=== PATIENT | female | born 1970 | race Caucasian/White ===

== ENCOUNTER 2021-04-05 13:41 | Emergency (ER) | payer BC, MEDICAID, SELFPAY ==
[2021-04-05 14:02] VITALS: BP 146/103; PULSE 120; RESP 16; TEMP 37.4; O2SAT 97
[2021-04-05 14:15] VITALS: BP 141/92; PULSE 112; RESP 18; TEMP 37.7; O2SAT 97
[2021-04-05] MEDS: ondansetron 2 mg/ML SDV 2 mL 4 MG IM (14:30)
--- NOTE | 2021-04-05 15:09 | ED_ITS ---
Documented by User: Genna Morales PA-C 04/05/21 16:52 HPI - Dental/Oral General: Chief complaint: Dental/Oral Stated complaint: FEVER, N/V Time Seen by Provider: 04/05/21 14:16 Source: patient Mode of arrival: ambulatory Limitations: no limitations History of Present Illness: HPI Narrative: 50-year-old female presents to the ER today for dental pain, facial swelling, chills, fever. Patient reports she had a tooth removed yesterday. Patient reports this tooth was abscessed and difficult to remove. Patient was prescribed clindamycin and started it yesterday. Patient reports she did not have good anesthesia during the procedure and it was very painful. She reports she is taking the hydrocodone prescribed by the dentist which does not touch the pain at this time. Patient was unable to call the dentist today because he is out on Fridays. Patient reports constant pus drainage from the dental extraction site. She reports some increased swelling today in the left maxilla. Patient reports chills and being feverish. Patient reports nausea and vomiting due to pain. Patient denies headache, chest pain, shortness of breath, diarrhea, constipation. MD Complaint: tooth pain Onset (ago): day(s) Duration: constant Severity: severe Severity scale (1-10): 8 Relieving factors: nothing Review of Systems General: Reports: 10 or more systems reviewed and unremarkable except in HPI and below Physical Exam Const: COMMON NORMALS: average body habitus, patient oriented x3 and no limitations GENERAL APPEARANCE: cooperative and ill appearing (vomiting); not comfortable HENMT: COMMON NORMALS: normocephalic, external ears normal, Normal external nose present and oropharynx normal HEAD & SCALP: normocephalic NOSE: Normal external nose present EXTERNAL EAR: Yes external ears normal TEETH & GINGIVA: Yes abnormal tooth and associated gingiva (Noted extraction site left upper maxilla with drainage.) THROAT: posterior oropharynx normal Lymph: LYMPHATIC: no lymphadenopathy noted Resp: COMMON NORMALS: normal respiratory effort and No retractions EFFORT & INSPECTION: Yes able to speak in complete sentences Cardio: COMMON NORMALS: regular rate and regular rhythm RATE: regular rate RHYTHM: regular rhythm Extremity: COMMON NORMALS: normal to inspection and full ROM Neuro: COMMON NORMALS: patient oriented x3, moves all extremities, no sensory deficits noted and gait normal Psych: COMMON NORMALS: mental status grossly normal, Normal thought process present, cooperative and normal affect THOUGHT PROCESS: Normal thought process present Skin: COMMON NORMALS: no rashes or lesions noted and no wounds GENERAL SKIN EXAM: no rashes or lesions noted Course ED course: Patient presents to the ER today with dental pain and pus from a dental extraction done yesterday. Patient is on antibiotics at this time. Patient reports having difficulty getting the tooth out. She tried to call her dentist today but they were out of town. Patient is concerned that there is some swelling and increased pain. Patient has nausea and vomiting due to the pain. We will do labs to rule out infection in the blood. Patient is on an appropriate antibiotic and likely needs to give it some time. On exam, the pus is to be expected from the site given there was a known abscess cavity up into the sinuses. Vital Signs: Vital signs: Vital Signs Temperature 99.9 F H 04/05/21 14:15 Pulse Rate 112 H 04/05/21 14:15 Respiratory Rate 18 04/05/21 14:15 Blood Pressure 141/92 04/05/21 14:15 Pulse Oximetry 97 04/05/21 14:15 MDM - Dental/Oral MDM Narrative: Medical decision making narrative: 50-year-old female presents to the ER today with dental infection and pain in the left maxillary region. Patient had a tooth extracted yesterday due to a deep abscess that went into the sinuses. Patient was started on clindamycin and has been taking it for the last 24 hours. Patient reports pain has not improved any. She reports drainage from the extraction site. Patient reports low-grade fever and chills, nausea and vomiting. Patient reports she is taking Tylenol and hydrocodone as prescribed by her dentist. On exam, there does appear to be an extraction with some drainage noted. CBC done in ER and is normal. Patient is on appropriate medication at this time. I discussed with patient that usually it takes up to 48 hours for antibiotic to start showing improvement. She should continue the antibiotic and take pain medication as prescribed by the dentist. Apply ice to reduce swelling. Eat soft foods. Follow-up with a dentist in 3 to 5 days. Return to the ER with new or worsening symptoms. Patient verbalized understanding and is in agreement with the treatment plan. Lab Data: Attestation: I reviewed the patient's lab results. Labs: Lab Results 04/05/21 14:46 WBC 6.2 10^3/uL 10^3/ uL (4.0-10.0) RBC 5.14 10^6/uL 10^6 /uL (4.1-5.3) Hgb 14.4 g/dL g/dL (11.5-15.3) Hct 44.1 % % (37.0-47.0) MCV 85.8 fl fl (81-99) MCH 28.0 pg pg (28.0-34.0) MCHC 32.7 g/dL g/dL (30.0-36.0) RDW 13.4 % % (12.1-15.1) Plt Count 233 10^3/cmm 10^3 /cmm (130-400) MPV 10.2 fL fL (7.4-10.4) Neut % (Auto) 72.5 % % Lymph % (Auto) 16.3 % % [place] % (Auto) 10.4 % % Eos % (Auto) 0.0 % % Baso % (Auto) 0.5 % % Neut # (Auto) 4.52 10^3/uL 10^3 /uL (1.8-7.7) Lymph # (Auto) 1.0 10^3/uL 10^3/ uL (0.8-4.8) [place] # (Auto) 0.7 10^3/uL 10^3/ uL (0.2-0.9) Eos # (Auto) 0.0 10^3/uL 10^3/ uL (0.0-0.8) Baso # (Auto) 0.0 10^3/uL 10^3/ uL (0.0-0.1) Nucleated RBC % (a uto) 0 % % Nucleated RBCs # 0.0 /100WBC /100W Critical Care Time Critical Care Time: Critical Care Time: No Discharge Plan Discharge Patient Disposition: Home Clinical Impression: Dental infection Condition: Stable Discharge Orders: Discharge ED (Routine); Ordered 04/05/21 Ordered By: Genna Morales Discharge Diet: Soft Mechanical Discharge Activity: Resume usual activity Patient Instructions: Opioid Safety Activity Restrictions/Additional Instructions: Continue taking clindamycin as prescribed. Take Tylenol as discussed, 1000 mg three times daily. Apply ice to reduce swelling in face. Soft foods recommended. Follow-up with a dentist on Thursday if things have not improved. Return to the ER with new or worsening symptoms. Coding Level of Care Code ED Window Glazier Helper for Chg Fwd Exam Comprehensive Documented by User: Raji Isidro DO 04/09/21 06:56 HPI - Dental/Oral General: Chief complaint: Dental/Oral Stated complaint: FEVER, N/V Time Seen by Provider: 04/05/21 14:16 Course Vital Signs: Vital signs: Vital Signs Temperature 99.9 F H 04/05/21 14:15 Pulse Rate 112 H 04/05/21 14:15 Respiratory Rate 18 04/05/21 14:15 Blood Pressure 141/92 04/05/21 14:15 Pulse Oximetry 97 04/05/21 14:15 MDM - Dental/Oral MDM Narrative: Medical decision making narrative: Chart reviewed and patient discussed with midlevel. Agree with assessment and plan. Lab Data: Labs: Lab Results 04/05/21 14:46 WBC 6.2 10^3/uL 10^3/ uL (4.0-10.0) RBC 5.14 10^6/uL 10^6 /uL (4.1-5.3) Hgb 14.4 g/dL g/dL (11.5-15.3) Hct 44.1 % % (37.0-47.0) MCV 85.8 fl fl (81-99) MCH 28.0 pg pg (28.0-34.0) MCHC 32.7 g/dL g/dL (30.0-36.0) RDW 13.4 % % (12.1-15.1) Plt Count 233 10^3/cmm 10^3 /cmm (130-400) MPV 10.2 fL fL (7.4-10.4) Neut % (Auto) 72.5 % % Lymph % (Auto) 16.3 % % [place] % (Auto) 10.4 % % Eos % (Auto) 0.0 % % Baso % (Auto) 0.5 % % Neut # (Auto) 4.52 10^3/uL 10^3 /uL (1.8-7.7) Lymph # (Auto) 1.0 10^3/uL 10^3/ uL (0.8-4.8) [place] # (Auto) 0.7 10^3/uL 10^3/ uL (0.2-0.9) Eos # (Auto) 0.0 10^3/uL 10^3/ uL (0.0-0.8) Baso # (Auto) 0.0 10^3/uL 10^3/ uL (0.0-0.1) Nucleated RBC % (a uto) 0 % % Nucleated RBCs # 0.0 /100WBC /100W BC Discharge Plan Discharge Patient Disposition: Home Clinical Impression: Dental infection Condition: Stable Discharge Orders: Discharge ED (Routine); Ordered 04/05/21 Ordered By: Genna Morales Discharge Diet: Soft Mechanical Discharge Activity: Resume usual activity Patient Instructions: Opioid Safety Activity Restrictions/Additional Instructions: Continue taking clindamycin as prescribed. Take Tylenol as discussed, 1000 mg three times daily. Apply ice to reduce swelling in face. Soft foods recommended. Follow-up with a dentist on Thursday if things have not improved. Return to the ER with new or worsening symptoms. Coding Level of Care Code ED Window Glazier Helper for Bryson Fwlary Exam Comprehensive
[2021-04-05 16:05] LABS: Basophils % 0.5 %; Hematocrit 44.1 % (37.0-47.0); Hemoglobin 14.4 g/dL (11.5-15.3); Lymphocytes % 16.3 %; Mean Corpuscular HGB Conc 32.7 g/dL (30.0-36.0); Mean Corpuscular Volume 85.8 fl (81-99); Mean Platelet Volume 10.2 fL (7.4-10.4); Monocytes # 0.7 10^3/uL (0.2-0.9); Monocytes % 10.4 %; Neutrophils # 4.52 10^3/uL (1.8-7.7); Neutrophils % 72.5 %; Nucleated Red Blood Cells % 0 %; Platelet Count 233 10^3/cmm (130-400); Red Blood Count 5.14 10^6/uL (4.1-5.3); Red Cell Distribution Width 13.4 % (12.1-15.1); White Blood Count 6.2 10^3/uL (4.0-10.0)
== END 2021-04-05 16:57 | disposition home or self-care (01) ==
PROVIDERS: Emergency Provider Physician Assistant
DX: K04.7 Periapical abscess without sinus (principal)
CPT/HCPCS: 85025; 96372; 99283; J2405

== ENCOUNTER 2021-09-14 06:15 | Emergency (ER) | payer BC, MEDICAID, SELFPAY ==
[2021-09-14] VITALS (7 sets, daily range): BP systolic 108–163; BP diastolic 74–106; PULSE 61–70; RESP 12–20; TEMP 36.7; O2SAT 97–100; BMI 39.4
--- NOTE | 2021-09-14 06:32 | W.ED.ABDPA2 ---
HPI - Abdominal Pain General: Chief Complaint: Abdominal Pain Stated Complaint: abd pain Time Seen by Provider: 09/14/21 06:16 History of Present Illness: Ms. Clements is a 51-year-old lady who presents to the emergency room due to abdominal pain. Onset of symptoms was subacute approximately 8 PM. She describes lower abdominal pain with pelvic pain that is moderate to severe in intensity. Since onset course occasionally worsens however has not gone away. No associated vomiting or diarrhea. Patient has been having normal bowel movements. no blood istool. No urinary symptoms. Denies similar frequent episodes in the past. Symptoms are worse with palpation and movement. Course has persisted. No other specific changes in health, exacerbating, or alleviating factors identified. Onset (ago): hour(s) Pain Consistency: constant Location: RLQ, LLQ and Suprapubic Severity: moderate Quality: cramping and stabbing Exacerbating factors: movement Relieving factors: nothing Associated Symptoms: Reports nausea Review of Systems General: Reports: 10 or more systems reviewed and unremarkable except in HPI and below GI: Reports: nausea PFSH ED PFSH: Medical History (Updated 09/26/21 @ 01:06 by Brandon Hurt MD) No significant past medical history Surgical History (Updated 09/26/21 @ 01:06 by Brandon Hurt MD) H/O: hysterectomy Physical Exam Const: COMMON NORMALS: alert GENERAL APPEARANCE: cooperative, well developed and in distress (uncomfortable appearing due to pain) HENMT: COMMON NORMALS: normocephalic and atraumatic HEAD & SCALP: normocephalic and atraumatic Eye: COMMON NORMALS: conjunctivae normal CONJUNCTIVA: Yes conjunctivae normal SCLERA: sclerae normal Neck/C-Spine: COMMON NORMALS: supple GENERAL: Yes trachea midline Resp: COMMON NORMALS: normal respiratory effort and clear to auscultation bilaterally EFFORT & INSPECTION: Yes able to speak in complete sentences AUSCULTATION: clear to auscultation bilaterally Cardio: COMMON NORMALS: regular rate and regular rhythm RATE: regular rate RHYTHM: regular rhythm GI: COMMON NORMALS: Soft to palpation PALPATION: Yes Soft to palpation, Yes Tenderness to palpation present (GI), No Guarding due to palpation present (GI) and No Rigid due to palpation PERCUSSION: normal to percussion Extremity: GENERAL: Yes normal exam except as noted and No edema Neuro: COMMON NORMALS: moves all extremities SENSORIUM/ORIENTATION: Yes alert and No Orientation impaired Psych: COMMON NORMALS: mental status grossly normal and Normal thought process present THOUGHT PROCESS: Normal thought process present Course ED course: - Patient was seen and evaluated by me at bedside - Patient placed on cardiac monitors, IV access obtained - Initial evaluation notable for exam as above - Labs personally interpreted by me - Analgesia given - Labs notable for no leukocytosis, normal hemoglobin. Metabolic end with perhaps minimal evidence of dehydration. No evidence of urinary tract infection. - Imaging notable for mild/early sigmoid diverticulitis - Upon serial reexamination after treatment the patient was improved. She tolerated p.o. intake and was comfortable with plan for outpatient antibiotic therapy. First dose of antibiotics ordered here. - Based on patient history, evaluation, and testing as interpreted the most likely cause of the patient's condition is diverticulitis - The results of ED evaluation were discussed with the patient including prescriptions and/or symptomatic cares (if applicable) including appropriate and responsible use, followup plan, and return precautions. The patient verbalized understanding and felt safe for discharge. - Patient discharged in satisfactory condition. Note: Click bubbles or prepopulated li in note writing are used for assistance with data collection and billing and are inherently more limited than narrative and other text portions of this note. Please use narrative for additional clinical history and defer to narrative/free test for any case of contradictory information. If information appears in only free text or click bubble it should be considered present or absent as reported. Please contact note underwriter solicitation director for clarifications of clinical information or contradictory information. MDM is a brief summary, contradictory or erroneous seeming information should be clarified and full note should be reviewed. Vital Signs: Vital signs: Vital Signs Temperature 98.0 F 09/14/21 06:42 Pulse Rate 65 09/14/21 12:17 Respiratory Rate 16 09/14/21 12:17 Blood Pressure 119/84 09/14/21 12:17 Pulse Oximetry 97 09/14/21 12:17 MDM - Abdominal Pain Medical Decision Making 51-year-old lady presenting with abdominal pain. Patient found have diverticulitis. Improved symptoms with treatment and able to tolerate p.o. intake. Satisfactory for outpatient management. Medical Records I reviewed the patient's medical records. Lab Data I reviewed the patient's lab results. : 09/14/21 08:15 09/14/21 08:15 Labs/Radiology: Radiology Impressions Abdomen/Pelvis CT 09/14/21 07:07 IMPRESSION: Imaging findings of mild/early sigmoid diverticulitis. Laboratory Results WBC 7.0 10^3/uL (4.0-10.0) 09/14/21 08:15 RBC 5.31 10^6/uL (4.1-5.3) H 09/14/21 08:15 Hgb 14.9 g/dL (11.5-15.3) 09/14/21 08:15 Hct 44.0 % (37.0-47.0) 09/14/21 08:15 MCV 82.9 fl (81-99) 09/14/21 08:15 MCH 28.1 pg (28.0-34.0) 09/14/21 08:15 MCHC 33.9 g/dL (30.0-36.0) 09/14/21 08:15 RDW 13.4 % (12.1-15.1) 09/14/21 08:15 Plt Count 243 10^3/cmm (130-400) 09/14/21 08:15 MPV 11.2 fL (7.4-10.4) H 09/14/21 08:15 Neut % (Auto) 54.9 % 09/14/21 08:15 Lymph % (Auto) 36.3 % 09/14/21 08:15 [place] % (Auto) 7.5 % 09/14/21 08:15 Eos % (Auto) 0.6 % 09/14/21 08:15 Baso % (Auto) 0.7 % 09/14/21 08:15 Neut # (Auto) 3.83 10^3/uL (1.8-7.7) 09/14/21 08:15 Lymph # (Auto) 2.5 10^3/uL (0.8-4.8) 09/14/21 08:15 [place] # (Auto) 0.5 10^3/uL (0.2-0.9) 09/14/21 08:15 Eos # (Auto) 0.0 10^3/uL (0.0-0.8) 09/14/21 08:15 Baso # (Auto) 0.1 10^3/uL (0.0-0.1) 09/14/21 08:15 Nucleated RBC % (auto) 0 % 09/14/21 08:15 Nucleated RBCs # 0.0 /100WBC 09/14/21 08:15 Sodium 138 mmol/L (136-145) 09/14/21 08:15 Potassium 4.4 mmol/L (3.5-5.1) 09/14/21 08:15 Chloride 106 mmol/L (98-107) 09/14/21 08:15 Carbon Dioxide 20 mmol/L (22-29) L 09/14/21 08:15 Anion Gap 16.4 (5-19) 09/14/21 08:15 BUN 16 mg/dL (6-20) 09/14/21 08:15 Creatinine 0.8 mg/dL (0.5-0.9) 09/14/21 08:15 GFR Calculation 75.9 mL/min (90-130) L 09/14/21 08:15 Glucose 92 mg/dL (65-115) 09/14/21 08:15 Calculated Osmolality 287 mOsm/kg (285-295) 09/14/21 08:15 Lactate 1.4 mmol/L (0.5-2.2) 09/14/21 08:22 Calcium 9.0 mg/dL (8.5-10.5) 09/14/21 08:15 Total Bilirubin 0.6 mg/dL (0.15-1.2) 09/14/21 08:15 AST 18 U/L (0-32) 09/14/21 08:15 ALT 22 U/L (0-33) 09/14/21 08:15 Alkaline Phosphatase 109 IU/L (35-105) H 09/14/21 08:15 Total Protein 7.3 g/dL (6.6-8.7) 09/14/21 08:15 Albumin 4.1 g/dL (3.5-5.2) 09/14/21 08:15 Globulin 3.2 g/dL (1.3-4.6) 09/14/21 08:15 Lipase 19 U/L (13-60) 09/14/21 08:15 Urine Color Yellow (Yellow) 09/14/21 08:22 Urine Appearance Clear (CLEAR) 09/14/21 08:22 Urine pH 7 (5-7) 09/14/21 08:22 Ur Specific [place] 1.010 (1.005-1.030) 09/14/21 08:22 Urine Protein Neg (Negative) 09/14/21 08:22 Urine Glucose (UA) Norm (Normal) 09/14/21 08:22 Urine Ketones Negative (Negative) 09/14/21 08:22 Urine Blood Neg (Negative) 09/14/21 08:22 Urine Nitrate Negative (Negative) 09/14/21 08:22 Urine Bilirubin Neg (Negative) 09/14/21 08:22 Urine Urobilinogen Norm mg/dL (Negative) 09/14/21 08:22 Ur Leukocyte Esterase Negative (Negative) 09/14/21 08:22 Discharge Plan Discharge Patient Disposition: Home Clinical Impression: Diverticulitis Condition: Stable Prescriptions: New oxycodone 5 mg capsule 5 mg PO Q4H PRN (Reason: pain) Qty: 10 0RF Cipro 500 mg tablet 500 mg PO BID Qty: 10 0RF metronidazole 500 mg tablet 500 mg PO TID Qty: 15 0RF Discharge Orders: Discharge ED (Routine); Ordered 09/14/21 Ordered By: Brandon Hurt Discharge Diet: Clear Liquid Discharge Activity: Increase activity as tolerated Patient Instructions: Diverticulitis (ED), Diverticulitis Diet (ED), Opioid Safety Activity Restrictions/Additional Instructions: Thank you for visiting the emergency department. You were seen and evaluated for abdominal pain. You are found to have mild diverticulitis. This likely explains your symptoms. Given other findings and improvement of your symptoms with treatment I believe that trial of outpatient treatment is appropriate. You will be given a prescription for antinausea medication, pain medication, and antibiotics. You may also use [id number] medications however please do not exceed the daily recommended dosage and please keep in mind that many namebrand medications contain the same active ingredients. Please return to the emergency department for uncontrolled symptoms, inability to tolerate antibiotics, failure to improve in the next few days, or anything else that you are concerned about and feel needs emergency department evaluation. Coding Level of Care Code ED Transportation Mechanic for Bryson Ferreira
--- NOTE | 2021-09-14 07:07 | CTR_ITS ---
PROCEDURE INFORMATION: Exam: CT Abdomen And Pelvis Without Contrast Exam date and time: 09/14/2021 8:52 AM Age: 51 years old Clinical indication: Abdominal pain; Localized; Lower; Prior surgery; Surgery type: Gb; Additional info: Lower abd pain, severe TECHNIQUE: Imaging protocol: Computed tomography of the abdomen and pelvis without contrast. Radiation optimization: All CT scans at this facility use at least one of these dose optimization techniques: automated exposure control; mA and/or kV adjustment per patient size (includes targeted exams where dose is matched to clinical indication); or iterative reconstruction. COMPARISON: CT abdomen pelvis w con* [id number] 08/25/2018 12:04 AM RADIATION DOSE METRICS: Total DLP (mGy-cm): 1686.88 FINDINGS: Liver: The liver is diffusely decreased in density, compatible with hepatic steatosis. No discrete mass lesion identified. Gallbladder and bile ducts: The gallbladder has been surgically removed. Pancreas: Normal. No ductal dilation. Spleen: There is tiny calcific densities scattered throughout the spleen, likely sequela of previous granulomatous disease. The spleen is otherwise unremarkable. Adrenal glands: Normal. No mass. Kidneys and ureters: There is a 0.3 cm nonobstructing stone in the right lower kidney. The left kidney is unremarkable. Stomach and bowel: There is multiple diverticuli in the sigmoid colon, in association with minimal focal wall thickening and subtle stranding of the adjacent fat, consistent with acute diverticulitis. No evidence of free air or fluid collection to suggest perforation. Appendix: No evidence of appendicitis. Intraperitoneal space: See Stomach and bowel finding. Vasculature: Unremarkable. No abdominal aortic aneurysm. Lymph nodes: Unremarkable. No enlarged lymph nodes. Urinary bladder: Unremarkable as visualized. Reproductive: The uterus is surgically absent. Bones/joints: Degenerative changes of the spine seen. Soft tissues: Unremarkable. CT/CT kidney stone [id number] IMPRESSION: Imaging findings of mild/early sigmoid diverticulitis.
[2021-09-14 08:28] LABS: Basophils # 0.1 10^3/uL (0.0-0.1); Basophils % 0.7 %; Eosinophils % 0.6 %; Hemoglobin 14.9 g/dL (11.5-15.3); Lymphocytes # 2.5 10^3/uL (0.8-4.8); Lymphocytes % 36.3 %; Mean Corpuscular HGB Conc 33.9 g/dL (30.0-36.0); Mean Corpuscular Hemoglobin 28.1 pg (28.0-34.0); Mean Corpuscular Volume 82.9 fl (81-99); Mean Platelet Volume 11.2 fL (7.4-10.4); Monocytes # 0.5 10^3/uL (0.2-0.9); Monocytes % 7.5 %; Neutrophils # 3.83 10^3/uL (1.8-7.7); Neutrophils % 54.9 %; Nucleated Red Blood Cells % 0 %; Platelet Count 243 10^3/cmm (130-400); Red Blood Count 5.31 10^6/uL (4.1-5.3); Red Cell Distribution Width 13.4 % (12.1-15.1)
[2021-09-14] MEDS: fentaNYL 50 mcg/mL INJ 2mL IVP (08:34)
[2021-09-14 08:49] LABS: Alanine Aminotransferase 22 U/L (0-33); Albumin Level 4.1 g/dL (3.5-5.2); Alkaline Phosphatase 109 IU/L (35-105); Anion Gap 16.4 (5-19); Aspartate Amino Transferase 18 U/L (0-32); Blood Urea Nitrogen 16 mg/dL (6-20); Carbon Dioxide 20 mmol/L (22-29); Chloride 106 mmol/L (98-107); Globulin 3.2 g/dL (1.3-4.6); Glomerular Filtration Rate 75.9 mL/min (90-130); Glucose 92 mg/dL (65-115); Lipase 19 U/L (13-60); Osmolality Calculated 287 mOsm/kg (285-295); Potassium 4.4 mmol/L (3.5-5.1); Sodium 138 mmol/L (136-145); Total Bilirubin 0.6 mg/dL (0.15-1.2); Total Protein 7.3 g/dL (6.6-8.7)
[2021-09-14 08:53] LABS: Add Urine Microscopic? NO; Charge for UA Resulting for Rev
[2021-09-14 08:55] LABS: Bilirubin Urine Neg (Negative); Blood Urine Neg (Negative); Glucose Urine UA Norm (Normal); Ketones Urine Negative (Negative); Leukocyte Esterase Urine Negative (Negative); Nitrate Urine Negative (Negative); Protein Urine Neg (Negative); Urine Appearance Clear (CLEAR); Urine Color Yellow (Yellow); Urobilinogen Urine Norm (Negative); pH Urine 7 (5-7)
[2021-09-14 09:00] LABS: Lactate (Lactic Acid level) 1.4 mmol/L (0.5-2.2)
[2021-09-14] MEDS: dicyclomine 10 mg Capsule PO (10:43)
--- NOTE | 2021-09-14 10:43 | PC.NURSE ---
Patient states she would like to hold off on the fentanyl at this time. Patient did take the Bentyl.
[2021-09-14] MEDS: ciprofloxacin 500 mg Tablet PO (11:52)
[2021-09-14] MEDS: metroNIDAZOLE 500 MG Tablet PO (11:52)
== END 2021-09-14 12:18 | disposition home or self-care (01) ==
PROVIDERS: Emergency Provider Emergency Medicine
DX: K57.32 Diverticulitis of large intestine without perforation or abscess without bleeding (principal); Z90.710 Acquired absence of both cervix and uterus
CPT/HCPCS: 74176; 80053; 81003; 83605; 83690; 85025; 96374; 99284; J3010

== ENCOUNTER 2022-07-17 12:33 | Outpatient (CLI) | payer BC, MEDICAID, SELFPAY ==
--- NOTE | 2022-07-17 12:42 | CT_ITS ---
WS: [id number] CT ABDOMEN PELVIS TECHNIQUE: Contrast-enhanced CT of the abdomen and pelvis with coronal and sagittal reformatted image s. CLINICAL INFORMATION: ABDOMINAL PAIN COMPARISON: CT September 14, 2021 DLP: 759.[address] scans at [facility] use at least one of these dose optimization techniques: automated e xposure control; mA and/or kV adjustment per patient size (includes targeted exams where dose is matc hed to clinical indication); or iterative reconstruction. FINDINGS: Prior cholecystectomy. Prior hysterectomy. Sigmoid diverticulosis. No evidence of acute diverticuliti s. Normal appendix in the RIGHT lower quadrant. Diffuse fatty infiltration liver. Normal portal vein and splenic vein. Splenic granulomas. Lung bases are well aerated. Adrenal glands are normal. Normal renal parenchymal enhancement. No hydronephrosis . Celiac and SMA are patent. Normal caliber abdominal aorta. Disc space narrowing worse L5-S1. Disc bulging L3-L4 with mild central canal stenosis and impingement on the LEFT greater than RIGHT subarticular recess. Moderate facet arthropathy ligamentum flavum hyp ertrophy. CT/CT abdomen pelvis w con* [id number] IMPRESSION: 1. Diffuse fatty infiltration liver. 2. Diverticulosis. No evidence of acute diverticulitis. 3. Cholecystectomy and hysterectomy. 4. Mild central canal stenosis L3-L4 with impingement on the LEFT subarticular recess and traversing LEFT L4 nerve root. 5. No other acute findings.
[2022-07-17] MEDS: iohexol 350 mg/mL 500 mL Btl (per mL) IV (12:56)
[2022-07-17] MEDS: iohexol 350 mg/mL 500 mL Btl (per mL) PO (12:57)
== END 2022-07-17 12:34 | disposition home or self-care (01) ==
LOC: RAD 12:36
PROVIDERS: PCP Family Medicine; Visit Provider Family Medicine
DX: R10.9 Unspecified abdominal pain (principal); K76.0 Fatty (change of) liver, not elsewhere classified; K57.30 Diverticulosis of large intestine without perforation or abscess without bleeding; Z90.49 Acquired absence of other specified parts of digestive tract; Z90.710 Acquired absence of both cervix and uterus; M48.061 Spinal stenosis, lumbar region without neurogenic claudication
CPT/HCPCS: 74177; Q9967

== ENCOUNTER 2022-08-27 10:30 | Outpatient (CLI) | payer BC, MEDICAID, SELFPAY ==
--- NOTE | 2022-08-27 10:35 | MR_ITS ---
WS: [id number] MRI LEFT HIP without CONTRAST. COMPARISON: Radiograph 07/23/2022 Multiplanar, multisequence imaging is performed without contrast. No fracture or marrow edema involving the pelvis. SI joints are symmetric. There is very mild narrowi ng of the hip joints. Osteophytic ridging around the acetabulum. No joint effusion. There is a very s mall amount of fluid adjacent to the greater trochanters. No osteochondral lesions. No osteonecrosis involving either femoral head. No muscle atrophy or edema. No labral tear. No ascites. Visualized bladder is negative. MR/MR hip LT wo con* [id number] IMPRESSION: 1. Mild bilateral narrowing of the hip joints with osteophytic ridging around the acetabulum. 2. No marrow edema or fracture. 3. No osteonecrosis. 4. Mild bilateral trochanteric bursitis.
== END 2022-08-27 10:31 | disposition home or self-care (01) ==
LOC: RAD 10:31
PROVIDERS: PCP Family Medicine; Visit Provider Family Medicine
DX: M25.552 Pain in left hip (principal); M71.9 Bursopathy, unspecified
CPT/HCPCS: 73721

== ENCOUNTER 2022-09-19 04:30 | Emergency (ER) | payer BC, MEDICAID, SELFPAY ==
[2022-09-19 04:32] VITALS: BP 148/101; PULSE 89; RESP 22; TEMP 36.6; O2SAT 100; BMI 38.7
--- NOTE | 2022-09-19 04:34 | CTR_ITS ---
PROCEDURE INFORMATION: Exam: CTA Chest With Contrast Exam date and time: 09/19/2022 5:04 AM Age: 52 years old Clinical indication: Chest wall pain; Prior surgery; Surgery date: Post-operative (0-2 days); Surgery type: Nerve root injection upper back per PT; Additional info: Back pain TECHNIQUE: Imaging protocol: Computed tomographic angiography of the chest with contrast. Exam focused on the arteries. 3D rendering (Not supervised by radiologist): MIP and/or 3D reconstructed images were created by the technologist. Radiation optimization: All CT scans at this facility use at least one of these dose optimization techniques: automated exposure control; mA and/or kV adjustment per patient size (includes targeted exams where dose is matched to clinical indication); or iterative reconstruction. Contrast material: OMNI 350; Contrast volume: 100 ml; Contrast route: INTRAVENOUS (IV); REPORTING DATA: Count of CT and Cardiac NM exams in prior 12 months: This patient has received [address] and 0 known cardiac nuclear medicine studies in the 12 months prior to the current study. COMPARISON: CR (CHEST, ) 09/19/2022 4:44 AM RADIATION DOSE METRICS: Total DLP (mGy-cm): 483.63 FINDINGS: Pulmonary arteries: No CT evidence for segmental pulmonary emboli. The main pulmonary arteries and outflow trunk are unremarkable. Aorta: No thoracic aortic aneurysm. No thoracic aortic dissection. Trachea: The central airway is normal. Lungs: Normal lung volumes. Mild dependent atelectasis. No regions of consolidation. No interlobular septal thickening or honeycombing seen to suggest interstitial lung disease on CT. Pleural spaces: No pneumothorax. No pleural effusion. Heart: The heart size is within normal limits. The RV/LV ratio is normal at 0.8 (no CT evidence of RV strain). There is no pericardial effusion. No coronary arterial atherosclerotic vascular calcifications. Lymph nodes: Nonspecific enlarged prevascular 1 x 1.2 cm lymph node is seen. Enlarged right paratracheal 1 x 1 cm lymph node is seen. Right hilar calcified lymph nodes are seen, representing old granulomatous disease. Bones/joints: No acute osseous abnormalities seen. Small degenerative osteophytes are seen throughout the thoracic spine. Soft tissues: Unremarkable. CT/CT angio chest [id number] IMPRESSION: 1. No CTA evidence of pulmonary embolism, thoracic aortic aneurysm or thoracic aortic dissection. 2. Some mild dependent atelectasis. No CT evidence of pneumonia. 3. Nonspecific enlarged mediastinal lymph nodes.
--- NOTE | 2022-09-19 04:34 | XRR_ITS ---
PROCEDURE INFORMATION: Exam: XR Chest Exam date and time: 09/19/2022 4:44 AM Age: 52 years old Clinical indication: Pain; Chest pressure; Prior surgery; Surgery date: Post-operative (0-2 days); Surgery type: Nerve root injection per patient; Additional info: Cp TECHNIQUE: Imaging protocol: Radiologic exam of the chest. Views: 1 view. COMPARISON: CR XR chest 1V [id number] 08/24/2018 11:52 PM FINDINGS: Lungs: Normal lung volumes. No interstitial or air space opacities seen. Pleural spaces: No pleural effusion. No pneumothorax. Heart/Mediastinum: Normal heart size. There is a mildly tortuous thoracic aorta. Midline trachea. Calcified right hilar lymph nodes are once again seen, representing old granulomatous disease. Bones/joints: No acute osseous abnormalities seen. XR/XR chest 1V portable [id number] IMPRESSION: No acute cardiopulmonary disease seen on the chest radiograph.
--- NOTE | 2022-09-19 04:42 | W.ED.BACK ---
HPI - Back Pain/Injury General: Chief Complaint: Back Pain/Injury Stated Complaint: BACK PAIN Time Seen by Provider: 09/19/22 04:31 Source: patient and EMS Mode of arrival: EMS Limitations: no limitations History of Present Illness: 52-year-old female has a history of chronic low back pain states she had a spinal injection 2 weeks ago she states that tonight she had sudden onset of thoracic back pain. States the pain just seems to be tearing in her thoracic spine and to her left shoulder. She denies any worse or improving factors states pain just seems to be there she denies any fevers. Associated symptoms: Deny abdominal pain, chills, fever(s), nausea or vomiting Review of Systems Const: Denies: fever(s), chills, body aches or change in appetite ENMT: Denies: throat pain or dental pain Card: Denies: chest pain Resp: Denies: dyspnea GI: Denies: abdominal pain, nausea, vomiting or diarrhea Musc: Reports: back pain; Denies: neck pain Skin/Breast: Denies: rash Neuro: Denies: headache(s) Psych: Denies: depression PFSH ED PFSH: Medical History No significant past medical history Surgical History H/O: hysterectomy Physical Exam Const: COMMON NORMALS: no acute distress, patient oriented x3 and healthy appearing HENMT: COMMON NORMALS: normocephalic and atraumatic HEAD & SCALP: normocephalic and atraumatic Eye: COMMON NORMALS: EOMs intact bilaterally Neck/C-Spine: COMMON NORMALS: full ROM and supple Chest: COMMONS NORMALS: normal inspection of the chest and normal palpation of entire chest wall Resp: COMMON NORMALS: normal respiratory effort, No retractions, No use of accessory muscles and clear to auscultation bilaterally AUSCULTATION: clear to auscultation bilaterally Cardio: COMMON NORMALS: regular rate, regular rhythm and No murmurs present (Cardio) RATE: regular rate RHYTHM: regular rhythm GI: COMMON NORMALS: Normal to inspection, nondistended, normoactive bowel sounds present, Soft to palpation, non-tender and no masses PALPATION: Yes Soft to palpation Extremity: COMMON NORMALS: normal to inspection and full ROM Neuro: COMMON NORMALS: patient oriented x3, moves all extremities and no focal motor deficits Psych: COMMON NORMALS: mental status grossly normal, Normal thought process present and cooperative THOUGHT PROCESS: Normal thought process present Skin: COMMON NORMALS: no rashes or lesions noted and no wounds GENERAL SKIN EXAM: no rashes or lesions noted Course Vital Signs: Vital signs: Vital Signs Temperature 97.8 F 09/19/22 04:32 Pulse Rate 57 L 09/19/22 08:42 Respiratory Rate 16 09/19/22 08:42 Blood Pressure 121/83 09/19/22 08:42 Pulse Oximetry 100 09/19/22 08:42 Oxygen Delivery Me thod Room Air 09/19/22 07:12 MDM - Back Pain/Injury Medical Decision Making Patient's care turned over to Dr. Dimas pending CT Labs 09/19/22 05:00 09/19/22 05:00 Radiology Impressions Chest CTA 09/19/22 04:34 IMPRESSION: 1. No CTA evidence of pulmonary embolism, thoracic aortic aneurysm or thoracic aortic dissection. 2. Some mild dependent atelectasis. No CT evidence of pneumonia. 3. Nonspecific enlarged mediastinal lymph nodes. Chest X-Ray 09/19/22 04:34 IMPRESSION: No acute cardiopulmonary disease seen on the chest radiograph. Laboratory Results WBC 7.9 10^3/uL (4.0-10.0) 09/19/22 05:00 RBC 5.01 10^6/uL (4.1-5.3) 09/19/22 05:00 Hgb 14.0 g/dL (11.5-15.3) 09/19/22 05:00 Hct 42.3 % (37.0-47.0) 09/19/22 05:00 MCV 84.4 fl (81-99) 09/19/22 05:00 MCH 27.9 pg (28.0-34.0) L 09/19/22 05:00 MCHC 33.1 g/dL (30.0-36.0) 09/19/22 05:00 RDW 13.7 % (12.1-15.1) 09/19/22 05:00 Plt Count 254 10^3/cmm (130-400) 09/19/22 05:00 MPV 10.4 fL (7.4-10.4) 09/19/22 05:00 Neut % (Auto) 56.3 % 09/19/22 05:00 Lymph % (Auto) 35.4 % 09/19/22 05:00 [place] % (Auto) 7.3 % 09/19/22 05:00 Eos % (Auto) 0.4 % 09/19/22 05:00 Baso % (Auto) 0.5 % 09/19/22 05:00 Neut # (Auto) 4.46 10^3/uL (1.8-7.7) 09/19/22 05:00 Lymph # (Auto) 2.8 10^3/uL (0.8-4.8) 09/19/22 05:00 [place] # (Auto) 0.6 10^3/uL (0.2-0.9) 09/19/22 05:00 Eos # (Auto) 0.0 10^3/uL (0.0-0.8) 09/19/22 05:00 Baso # (Auto) 0.0 10^3/uL (0.0-0.1) 09/19/22 05:00 Nucleated RBC % (auto) 0 % 09/19/22 05:00 Nucleated RBCs # 0.0 /100WBC 09/19/22 05:00 ESR 17 mm/hr (0-15) H 09/19/22 05:00 PT 12.70 SECONDS (12.1-14.9) 09/19/22 05:00 INR 0.93 (0.8-1.2) 09/19/22 05:00 Sodium 139 mmol/L (136-145) 09/19/22 05:00 Potassium 4.1 mmol/L (3.5-5.1) 09/19/22 05:00 Chloride 106 mmol/L (98-107) 09/19/22 05:00 Carbon Dioxide 22 mmol/L (22-29) 09/19/22 05:00 Anion Gap 15.1 (5-19) 09/19/22 05:00 BUN 11 mg/dL (6-20) 09/19/22 05:00 Creatinine 0.6 mg/dL (0.5-0.9) 09/19/22 05:00 GFR Calculation 105.4 mL/min (90-130) 09/19/22 05:00 Glucose 120 mg/dL (65-115) H 09/19/22 05:00 Calculated Osmolality 289 mOsm/kg (285-295) 09/19/22 05:00 Calcium 9.0 mg/dL (8.5-10.5) 09/19/22 05:00 Total Bilirubin 0.4 mg/dL (0.15-1.2) 09/19/22 05:00 AST 15 U/L (0-32) 09/19/22 05:00 ALT 21 U/L (0-33) 09/19/22 05:00 Alkaline Phosphatase 88 U/L (35-105) 09/19/22 05:00 C-Reactive Protein 5.5 mg/L (0.0-4.9) H 09/19/22 05:00 Total Protein 6.7 g/dL (6.6-8.7) 09/19/22 05:00 Albumin 3.9 g/dL (3.5-5.2) 09/19/22 05:00 Globulin 2.8 g/dL (1.3-4.6) 09/19/22 05:00 Urine Color Yellow (Yellow) 09/19/22 04:45 Urine Appearance Clear (CLEAR) 09/19/22 04:45 Urine pH 6 (5-7) 09/19/22 04:45 Ur Specific [place] 1.015 (1.005-1.030) 09/19/22 04:45 Urine Protein Neg (Negative) 09/19/22 04:45 Urine Glucose (UA) Norm (Normal) 09/19/22 04:45 Urine Ketones Negative (Negative) 09/19/22 04:45 Urine Blood Neg (Negative) 09/19/22 04:45 Urine Nitrate Negative (Negative) 09/19/22 04:45 Urine Bilirubin Neg (Negative) 09/19/22 04:45 Urine Urobilinogen Neg mg/dL (Negative) 09/19/22 04:45 Ur Leukocyte Esterase Trace (Negative) H 09/19/22 04:45 Urine RBC None /hpf (0-2) 09/19/22 04:45 Urine WBC 0-4 /hpf (0-5) H 09/19/22 04:45 Ur Squamous Epith Cells 0-4 /hpf (0-5) H 09/19/22 04:45 Amorphous Sediment Not Reportable 09/19/22 04:45 Urine Bacteria 2+ /hpf (NONE) H 09/19/22 04:45 Discharge Plan Discharge Patient Disposition: Home Clinical Impression: Upper back pain Condition: Stable Prescriptions: New hydrocodone-acetaminophen 5-325 mg tablet 1 tab PO Q6H PRN (Reason: pain) Qty: 10 0RF Medrol (Charlie) 4 mg tablets,dose pack See Rx Instructions .ROUTE .COMPLEX Qty: 21 0RF Rx Instructions: orally per package directions Discharge Orders: Discharge ED (Routine); Ordered 09/19/22 Ordered By: Nena Paez Referrals: Bj Moreno MD [Primary Care Provider] - Activity Restrictions/Additional Instructions: As we discussed please continue current plan to follow-up with your primary care provider and obtain referral to new pain management clinic. Coding Level of Care Code ED Wool Fleece Sorter for Bryson Ferreira
[2022-09-19 04:46] VITALS: RESP 16
[2022-09-19] MEDS: HYDROmorphone 1 mg/mL INJ 1 mL IVP (04:46)
[2022-09-19 05:05] LABS: Erythrocyte Sedimentation Rate 17 mm/hr (0-15)
[2022-09-19 05:06] LABS: Basophils % 0.5 %; Eosinophils % 0.4 %; Hematocrit 42.3 % (37.0-47.0); Lymphocytes # 2.8 10^3/uL (0.8-4.8); Lymphocytes % 35.4 %; Mean Corpuscular HGB Conc 33.1 g/dL (30.0-36.0); Mean Corpuscular Hemoglobin 27.9 pg (28.0-34.0); Mean Corpuscular Volume 84.4 fl (81-99); Mean Platelet Volume 10.4 fL (7.4-10.4); Monocytes # 0.6 10^3/uL (0.2-0.9); Monocytes % 7.3 %; Neutrophils # 4.46 10^3/uL (1.8-7.7); Neutrophils % 56.3 %; Nucleated Red Blood Cells % 0 %; Platelet Count 254 10^3/cmm (130-400); Red Blood Count 5.01 10^6/uL (4.1-5.3); Red Cell Distribution Width 13.7 % (12.1-15.1); White Blood Count 7.9 10^3/uL (4.0-10.0)
[2022-09-19] MEDS: iohexol 350 mg/mL 500 mL Btl (per mL) IV (05:11)
[2022-09-19 05:15] LABS: INR 0.93 (0.8-1.2)
[2022-09-19 05:20] LABS: Alanine Aminotransferase 21 U/L (0-33); Albumin Level 3.9 g/dL (3.5-5.2); Alkaline Phosphatase 88 U/L (35-105); Anion Gap 15.1 (5-19); Aspartate Amino Transferase 15 U/L (0-32); Blood Urea Nitrogen 11 mg/dL (6-20); C Reactive Protein 5.5 mg/L (0.0-4.9); Carbon Dioxide 22 mmol/L (22-29); Chloride 106 mmol/L (98-107); Globulin 2.8 g/dL (1.3-4.6); Glomerular Filtration Rate 105.4 mL/min (90-130); Glucose 120 mg/dL (65-115); Osmolality Calculated 289 mOsm/kg (285-295); Potassium 4.1 mmol/L (3.5-5.1); Sodium 139 mmol/L (136-145); Total Bilirubin 0.4 mg/dL (0.15-1.2); Total Protein 6.7 g/dL (6.6-8.7)
[2022-09-19 05:29] LABS: Glucose Urine UA Norm (Normal); Ketones Urine Negative (Negative); Protein Urine Neg (Negative); Specific Gravity, Urine 1.015 (1.005-1.030); Urine Appearance Clear (CLEAR); Urine Color Yellow (Yellow); pH Urine 6 (5-7)
[2022-09-19 05:30] LABS: Add Urine Culture? No; Add Urine Microscopic? YES; Bacteria Urine 2+ /hpf; Bilirubin Urine Neg (Negative); Blood Urine Neg (Negative); Leukocyte Esterase Urine Trace (Negative); Nitrate Urine Negative (Negative); Squamous Epithelial Cell Urine 0-4 /hpf (0-5); Urobilinogen Urine Neg (Negative); WBC Urine 0-4 /hpf (0-5)
[2022-09-19] MEDS: tizanidine 4 mg Tablet PO (07:10)
[2022-09-19] MEDS: HYDROmorphone 1 mg/mL INJ 1 mL 0.5 MG IVP (07:10)
[2022-09-19 07:12] VITALS: BP 125/83; PULSE 77; RESP 20; O2SAT 98
[2022-09-19 08:42] VITALS: BP 121/83; PULSE 57; RESP 16; O2SAT 100
== END 2022-09-19 08:45 | disposition home or self-care (01) ==
PROVIDERS: Emergency Medicine; Emergency Provider Family Medicine; PCP Family Medicine
DX: M54.6 Pain in thoracic spine (principal)
CPT/HCPCS: 71045; 71275; 80053; 81001; 85025; 85610; 85651; 86140; 96374; 96375; 99285; J1170; Q9967

== ENCOUNTER → 2022-10-10 11:29 | Outpatient (BNVA) | payer BC, MEDICAID, SELFPAY | PROVIDERS: PCP Family Medicine; Visit Provider Student in an Organized Health Care Education/Training Program | DX: M16.12 Unilateral primary osteoarthritis, left hip (principal) | CPT/HCPCS: 73502 ==

== ENCOUNTER 2022-12-03 08:36 | Emergency (ER) | payer BC, MEDICAID, SELFPAY ==
[2022-12-03 08:41] VITALS: BP 174/132; PULSE 81; RESP 16; TEMP 36.7; O2SAT 100; BMI 40.2
--- NOTE | 2022-12-03 08:46 | USCV_ITS ---
TyreeMelissa stallings Age: 52 Gender: F : 1970 Exam Date: 12/03/2022 09:01 Ordering Phys: Nena Paez Technologist: CT Exam Location: [facility] [place]_ Indication: PROCEDURES: Venous duplex imaging was performed in only the left upper extremity. In addition, the basilic vein and cephalic vein. FINDINGS: No evidence of deep vein thrombosis or superficial thrombophlebitis in the left upper extremity. The veins of the left upper extremity are readily compressible with normal venous flow dynamics including spontaneous flow, respiratory phasic variation and augmentation. CONCLUSIONS No left upper extremity DVT. Dr. Karen Price DO (Electronically Signed) Final Date: 03 December 2022 09:35 S
--- NOTE | 2022-12-03 08:47 | ED_ITS ---
HPI - Extremity Problem General: Chief complaint: Extremity Problem,Nontraumatic Stated complaint: LT arm pain Time Seen by Provider: 12/03/22 08:37 Source: patient Mode of arrival: ambulatory Limitations: no limitations History of Present Illness: Patient is a 52-year-old female who presents to the ED today with a complaint of pain to the posterior aspect of her left upper arm. She states she began noticing pain yesterday and describes it as a burning/stinging sensation. She feels like her arm may be swollen as well. She has not noticed any redness, warmth, streaking. No paleness/coolness. Denies numbness, tingling, loss of sensation. Denies recent injury or overuse. Patient is anxious and tearful during examination stating that the discomfort reminds her of similar pain she had in the right arm when she was subsequently diagnosed with a DVT. She states that was 3 years ago and symptoms developed following surgery to the right shoulder. Patient today has no complaints of chest pain, shortness of breath, difficulty breathing. She has not currently on any form of anticoagulation. MD Complaint: extremity pain Onset (ago): day(s) (yesterday) Pain Consistency: constant Location: left and upper extremity Quality: burning Radiation: none Relieving factors: nothing Exacerbating factors: nothing Associated symptoms: Deny chest pain, fever(s) or rash Review of Systems Const: Denies: fever(s), chills, body aches, fatigue or malaise Card: Denies: chest pain, irregular heart rhythm, lightheadedness, syncope or pre-syncope Resp: Denies: dyspnea or hemoptysis Musc: Reports: extremity pain and extremity swelling; Denies: neck pain, back pain, joint pain, joint swelling, joint redness or joint warmth Skin/Breast: Denies: rash or erythema Neuro: Denies: numbness in extremities, weakness in extremities or sensory changes PFS ED PFSH: Medical History No significant past medical history Surgical History H/O: hysterectomy Physical Exam Const: COMMON NORMALS: patient oriented x3, no limitations and alert GENERAL APPEARANCE: cooperative and anxious (tearful/scared she might have a blood clot) NUTRITIONAL APPEARANCE: obese ORIENTATION/CONSCIOUSNESS: Yes awake, Yes oriented to person, Yes oriented to place and Yes oriented to time Neck/C-Spine: COMMON NORMALS: full ROM, no lymphadenopathy and no meningeal signs GENERAL: Yes normal visual inspection Lymph: LYMPHATIC: no lymphadenopathy noted Chest: COMMONS NORMALS: normal inspection of the chest and normal palpation of entire chest wall Resp: COMMON NORMALS: normal respiratory effort and clear to auscultation bilaterally AUSCULTATION: clear to auscultation bilaterally Cardio: COMMON NORMALS: regular rate and regular rhythm RATE: regular rate RHYTHM: regular rhythm Extremity: COMMON NORMALS: normal to inspection, full ROM, capillary refill normal, no joint enlargement and no pedal edema GENERAL: Yes normal exam except as noted LEFT UPPER EXTREMITY: Yes upper arm and Yes lower arm OTHER: pt has pain to palpation of posteriomedial upper arm-I do not appreciate any redness/warmth/streaking/palpable cords; edema is hard to evaluate due to body habitus; no axillary lymphadenopathy; full painless ROM of shoulder/elbow joints; has some mild pains to volar forearm again without much clinical findings Neuro: COMMON NORMALS: patient oriented x3, moves all extremities, no focal motor deficits and no sensory deficits noted SENSORIUM/ORIENTATION: Yes alert, Yes oriented to person, Yes oriented to place and Yes oriented to time MENINGEAL SIGNS: Yes no meningeal signs Skin: COMMON NORMALS: no rashes or lesions noted GENERAL SKIN EXAM: no rashes or lesions noted Course Vital Signs: Vital signs: Vital Signs Temperature 98.1 F 12/03/22 08:41 Pulse Rate 81 12/03/22 08:41 Respiratory Rate 16 12/03/22 08:41 Blood Pressure 174/132 12/03/22 08:41 Pulse Oximetry 100 12/03/22 08:41 Oxygen Delivery Me thod Room Air 12/03/22 08:41 MDM - Extremity (Nontraumatic) Medical Decision Making Patient's venous US is negative for DVT. Patient feels much alleviated to hear this. She does tell me during re-examination that a while ago she received some type of intrathoracic spinal injection from a pain management provider and since then has had intermittent radiculopathies to the left arm. She feels symptoms most likely are related to this. I do not have any concern for emergent etiology. She is stable for discharge. Discharge Plan Discharge Patient Disposition: Home Clinical Impression: Left upper arm pain Condition: Stable Prescriptions: No Action lisinopril 20 mg tablet 20 mg PO DAILY PRN (Reason: Blood Pressure) Discharge Orders: Discharge ED (Routine); Ordered 12/03/22 Ordered By: Nena Paez Referrals: Bj Moreno MD [Primary Care Provider] - Coding Level of Care Code ED Garbage Collector for Bryson Ferreira
[2022-12-03 09:38] VITALS: BP 150/110; PULSE 74; RESP 16; O2SAT 97
[2022-12-03 09:39] VITALS: BP 150/110; PULSE 74; RESP 16; O2SAT 97
== END 2022-12-03 09:41 | disposition home or self-care (01) ==
PROVIDERS: Emergency Provider Physician Assistant; PCP Family Medicine
DX: M79.622 Pain in left upper arm (principal)
CPT/HCPCS: 93971; 99284

== ENCOUNTER 2022-12-20 23:48 | Inpatient (IN) | payer BC, MEDICAID, SELFPAY ==
[2022-12-21] VITALS: BP 157/92; PULSE 100; RESP 18; TEMP 36.6; O2SAT 97; BMI 42.0
--- NOTE | 2022-12-21 00:17 | ECG_ITS ---
[facility] Test Date: 2022-12-21 Pat Name: Melissa Clements Department: Room: 129 Gender: Female Director Of Sales Marketing: : 1970 Requested By: Augustine Lobo Order Number: [id number] Delilah MD: Lv Martinez M.D. Measurements Intervals [place] Rate: 104 P: 0 NC: 160 QRS: -16 QRSD: 94 T: 44 QT: 322 QTc: 425 Interpretive Statements SINUS TACHYCARDIA POSSIBLE ANTERIOR MYOCARDIAL INFARCTION , OF INDETERMINATE AGE [30 ms Q WAVE IN V3/V4, OR R < 0.2 mV IN V4] INFERIOR MYOCARDIAL INFARCTION , PROBABLY OLD [40+ ms Q WAVE AND/OR ST/T ABNORMALITY IN II/aVF] No previous ECG available for comparison Electronically Signed On 12-21-2022 11:09:21 CDT by Lv Martinez M.D. [id number]
--- NOTE | 2022-12-21 00:36 | ED.C_ITS ---
HPI - Psych General: Chief Complaint: Psychiatric Symptoms Stated Complaint: [place], lisonopril ingestion Time Seen by Provider: 12/20/22 23:49 Source: patient History of Present Illness: 52-year-old female with a history of depression. She also has a history of chronic back pain as well as left hip pain. She presents after having taken 100 mg of lisinopril earlier in the evening. She did this is a suicide attempt, as she was in pain, and at the end of her rope. Apparently, she was awaiting hip joint injection, and spinal injection, and at least one of her appointments was canceled and put off a month. She believes that is when these thoughts started. She is tearful on exam. She is in pain. Her blood pressure is currently 131/87. MD complaint: suicidal ideation and other Review of Systems Const: Denies: fever(s), chills or body aches Eyes: Denies: change in vision Card: Denies: chest pain or palpitations Resp: Denies: dyspnea, productive cough, non-productive cough or wheezing GI: Denies: abdominal pain, nausea, vomiting, diarrhea or hematochezia : Denies: difficulty voiding Skin/Breast: Denies: rash Neuro: Denies: headache(s), weakness in extremities, dizziness or confusion PFSH ED PFSH: Medical History No significant past medical history Surgical History H/O: hysterectomy Physical Exam Const: GENERAL APPEARANCE: cooperative and in distress; not ill appearing and not frail appearing HENMT: COMMON NORMALS: normocephalic, atraumatic and Normal external nose present HEAD & SCALP: normocephalic and atraumatic FACE & SINUS: normal facial exam and face symmetric NOSE: Normal external nose present Eye: COMMON NORMALS: Equal, round and reactive pupils present and EOMs intact bilaterally PUPIL: Yes Equal, round and reactive pupils present Neck/C-Spine: GENERAL: Yes trachea midline Chest: CHEST: Yes Symmetrical chest wall rise Resp: COMMON NORMALS: normal respiratory effort, No retractions, No use of accessory muscles and clear to auscultation bilaterally AUSCULTATION: clear to auscultation bilaterally Cardio: COMMON NORMALS: regular rate and regular rhythm RATE: regular rate RHYTHM: regular rhythm GI: COMMON NORMALS: Normal to inspection, nondistended, normoactive bowel sounds present Extremity: COMMON NORMALS: no pedal edema Neuro: JAIMEE COMA SCALE: document GCS findings Jaimee coma scale eye opening: Spontaneous Jaimee coma scale verbal response: Orientated [place] coma scale motor response: Obey commands Jaimee coma scale total score: 15 SE NSORY EXAM: Yes extremities (intact) Psych: COMMON NORMALS: speech normal ATTITUDE: Yes engaged ACTIVITY/MOTOR BEHAVIOR: Yes psychomotor slowing SPEECH: Yes normal speech MOOD & AFFECT: Yes depressed mood and Yes tearful THOUGHT PROCESS: Impoverished thought process present THOUGHT CONTENT: Yes Suicidality present ATTENTION/CONCENTRATION: Yes attention grossly intact and Yes concentration grossly intact MEMORY/COGNITION: Yes memory grossly intact and Yes cognition grossly intact INSIGHT: Fair insight present (Psych) JUDGEMENT: Limited judgement present (Psych) Skin: COMMON NORMALS: no rashes or lesions noted GENERAL SKIN EXAM: no rashes or lesions noted Course Vital Signs: Vital signs: Vital Signs Temperature 98 F 12/21/22 00:00 Pulse Rate 72 12/21/22 01:15 Respiratory Rate 18 12/21/22 01:15 Blood Pressure 147/94 12/21/22 01:15 Pulse Oximetry 96 12/21/22 01:15 Oxygen Delivery Me thod Room Air 12/21/22 03:57 MDM - Psych Medical Decision Making This patient has taken a nonlethal, nontoxic dose of lisinopril. Her blood pressure is not low. She is given 1 dose of pain medication here for chronic pain. This was an attempt at self-harm, and will be treated as such. Labs are pending. Her exam is otherwise medically stable. She will go to the Neuropsych Unit pending laboratory. Awaiting a callback from psychiatry. Laboratories not remarkable. Lab Data 12/21/22 00:32 12/21/22 00:32 Laboratory Results WBC 9.20 10^3/uL (3.29-11.43) 12/21/22 00:32 RBC 5.04 10^6/uL (3.85-5.65) 12/21/22 00:32 Hgb 14.30 g/dL (11.27-16.99) 12/21/22 00:32 Hct 42.6 % (36-47) 12/21/22 00:32 MCV 84.5 fl (85-98) L 12/21/22 00:32 MCH 28.4 pg (27-33) 12/21/22 00:32 MCHC 33.6 g/dL (30-55) 12/21/22 00:32 RDW 13.3 % (12.1-15.1) 12/21/22 00:32 Plt Count 253 10^3/cmm (157-399) 12/21/22 00:32 MPV 10.1 fL (7.4-10.4) 12/21/22 00:32 Neut % (Auto) 67.0 % 12/21/22 00:32 Lymph % (Auto) 25.0 % 12/21/22 00:32 [place] % (Auto) 7.2 % 12/21/22 00:32 Eos % (Auto) 0.2 % 12/21/22 00:32 Baso % (Auto) 0.4 % 12/21/22 00:32 Neut # (Auto) 6.16 10^3/uL (1.8-7.7) 12/21/22 00:32 Lymph # (Auto) 2.3 10^3/uL (0.8-4.8) 12/21/22 00:32 [place] # (Auto) 0.7 10^3/uL (0.2-0.9) 12/21/22 00:32 Eos # (Auto) 0.0 10^3/uL (0.0-0.8) 12/21/22 00:32 Baso # (Auto) 0.0 10^3/uL (0.0-0.1) 12/21/22 00:32 Nucleated RBC % (auto) 0 % 12/21/22 00:32 Nucleated RBCs # 0.0 /100WBC 12/21/22 00:32 Sodium 140 mmol/L (136-145) 12/21/22 00:32 Potassium 4.0 mmol/L (3.5-5.1) 12/21/22 00:32 Chloride 108 mmol/L (98-107) H 12/21/22 00:32 Carbon Dioxide 20 mmol/L (22-29) L 12/21/22 00:32 Anion Gap 16.0 (5-19) 12/21/22 00:32 BUN 21 mg/dL (6-20) H 12/21/22 00:32 Creatinine 0.7 mg/dL (0.5-0.9) 12/21/22 00:32 GFR Calculation 88.2 mL/min (90-130) L 12/21/22 00:32 Glucose 133 mg/dL (65-115) H 12/21/22 00:32 Calculated Osmolality 295 mOsm/kg (285-295) 12/21/22 00:32 Calcium 9.3 mg/dL (8.5-10.5) 12/21/22 00:32 Total Bilirubin 0.2 mg/dL (0.15-1.2) 12/21/22 00:32 AST 13 U/L (0-32) 12/21/22 00:32 ALT 19 U/L (0-33) 12/21/22 00:32 Alkaline Phosphatase 91 U/L (35-105) 12/21/22 00:32 Total Protein 7.0 g/dL (6.6-8.7) 12/21/22 00:32 Albumin 4.2 g/dL (3.5-5.2) 12/21/22 00:32 Globulin 2.8 g/dL (1.3-4.6) 12/21/22 00:32 TSH 2.37 uIU/mL (0.27-4.20) 12/21/22 00:32 HCG, Qual Negative (Negative) 12/21/22 00: Urine Color Yellow (Yellow) 12/21/22 00: Urine Appearance Clear (CLEAR) 12/21/22 00: Urine pH 5 (5-7) 12/21/22 00: Ur Specific [place] 1.020 (1.005-1.030) 12/21/22 00: Urine Protein Neg (Negative) 12/21/22 00: Urine Glucose (UA) Norm (Normal) 12/21/22 00: Urine Ketones Negative (Negative) 12/21/22 00: Urine Blood Neg (Negative) 12/21/22 00: Urine Nitrate Negative (Negative) 12/21/22 00: Urine Bilirubin Neg (Negative) 12/21/22 00: Urine Urobilinogen Neg mg/dL (Negative) 12/21/22 00: Ur Leukocyte Esterase Trace (Negative) H 12/21/22 00:01 Urine RBC Rare /hpf (0-2) 12/21/22 00:01 Urine WBC 0-4 /hpf (0-5) H 12/21/22 00:01 Ur Squamous Epith Cells None /hpf (0-5) 12/21/22 00:01 Amorphous Sediment Not Reportable 12/21/22 00:01 Urine Bacteria 1+ /hpf (NONE) H 12/21/22 00:01 Salicylates < 0.3 mg/dL (3-10) L 12/21/22 00:32 Urine Opiates Screen Negative ng/mL (Negative) 12/21/22 00:01 Acetaminophen < 5.0 ug/mL (10-30) L 12/21/22 00:32 Ur Barbiturates Screen Negative ng/mL (Negative) 12/21/22 00:01 Ur Phencyclidine Scrn Negative ng/mL (Negative) 12/21/22 00:01 Ur Amphetamines Screen Negative ng/mL (Negative) 12/21/22 00:01 U Benzodiazepines Scrn Negative ng/mL (Negative) 12/21/22 00:01 Urine Cocaine Screen Negative ng/mL (Negative) 12/21/22 00:01 U Marijuana (THC) Screen Negative ng/mL (Negative) 12/21/22 00:01 Ethyl Alcohol < 10 mg/dL (0-10) 12/21/22 00:32 No radiology studies performed this visit Discharge Plan Discharge Patient Disposition: Admitted As Inpatient Admit Provider: José Antonio Worrell Clinical Impression: Suicidal ideation, Intentional overdose Condition: Stable Coding Level of Care Code ED [employer] for Bryson Ferreira
[2022-12-21 00:37] LABS: Basophils % 0.4 %; Eosinophils % 0.2 %; Hematocrit 42.6 % (36-47); Lymphocytes # 2.3 10^3/uL (0.8-4.8); Mean Corpuscular HGB Conc 33.6 g/dL (30-55); Mean Corpuscular Hemoglobin 28.4 pg (27-33); Mean Corpuscular Volume 84.5 fl (85-98); Mean Platelet Volume 10.1 fL (7.4-10.4); Monocytes # 0.7 10^3/uL (0.2-0.9); Monocytes % 7.2 %; Neutrophils # 6.16 10^3/uL (1.8-7.7); Nucleated Red Blood Cells % 0 %; Platelet Count 253 10^3/cmm (157-399); Red Blood Count 5.04 10^6/uL (3.85-5.65); Red Cell Distribution Width 13.3 % (12.1-15.1)
[2022-12-21 00:47] LABS: Amphetamines Screen Urine Negative (Negative); Barbiturates Screen Urine Negative (Negative); Benzodiazepines Screen Urine Negative (Negative); Cocaine Screen Urine Negative (Negative); Opiate Screen Urine Negative (Negative); PCP Screen Urine Negative (Negative); THC Screen Urine Negative (Negative)
[2022-12-21 00:48] VITALS: RESP 14; O2SAT 96
[2022-12-21] MEDS: oxyCODONE-APAP 5-325 mg Tablet 2 TAB PO (00:48)
[2022-12-21] MEDS: orphenadrine 30 mg/mL Inj 2 mL 60 MG IM (00:48)
[2022-12-21 00:50] LABS: HCG Qualitative Urine. Negative (Negative)
[2022-12-21 00:53] LABS: Add Urine Culture? No; Add Urine Microscopic? YES; Bacteria Urine 1+ /hpf; Bilirubin Urine Neg (Negative); Blood Urine Neg (Negative); Glucose Urine UA Norm (Normal); Ketones Urine Negative (Negative); Leukocyte Esterase Urine Trace (Negative); Nitrate Urine Negative (Negative); Protein Urine Neg (Negative); RBC Urine RARE /hpf (0-2); Urine Appearance Clear (CLEAR); Urine Color Yellow (Yellow); Urobilinogen Urine Neg (Negative); WBC Urine 0-4 /hpf (0-5); pH Urine 5 (5-7)
[2022-12-21 01:09] LABS: Acetaminophen < 5.0 ug/mL (10-30); Alanine Aminotransferase 19 U/L (0-33); Albumin Level 4.2 g/dL (3.5-5.2); Alcohol Level < 10 mg/dL (0-10); Alkaline Phosphatase 91 U/L (35-105); Aspartate Amino Transferase 13 U/L (0-32); Blood Urea Nitrogen 21 mg/dL (6-20); Calcium 9.3 mg/dL (8.5-10.5); Carbon Dioxide 20 mmol/L (22-29); Chloride 108 mmol/L (98-107); Globulin 2.8 g/dL (1.3-4.6); Glomerular Filtration Rate 88.2 mL/min (90-130); Glucose 133 mg/dL (65-115); Osmolality Calculated 295 mOsm/kg (285-295); Salicylate < 0.3 mg/dL (3-10); Sodium 140 mmol/L (136-145); Thyroid Stimulating Hormone 2.37 uIU/mL (0.27-4.20); Total Bilirubin 0.2 mg/dL (0.15-1.2)
[2022-12-21 01:15] VITALS: BP 147/94; PULSE 72; RESP 18; O2SAT 96
--- NOTE | 2022-12-21 03:21 | PC.NURSE ---
96 Hour Involuntary Hold Rights have been presented to patient and a copy of the same has been given to her. Impact Hammer Operator Alex Worrell was present at the time of presentation.
[2022-12-21 03:25] VITALS: BMI 42.0
[2022-12-21 06:00] VITALS: BMI 42.0
[2022-12-21] MEDS: diphenhydrAMINE 50 mg Capsule PO (11:19)
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
[2022-12-21] MEDS: duloxetine 30 mg Capsule PO (13:39)
[2022-12-21 20:11] VITALS: BP 93/53; PULSE 82; RESP 18; TEMP 36.6; O2SAT 97
[2022-12-22 06:00] VITALS: BP 100/68; PULSE 74; RESP 17; TEMP 37; O2SAT 97
[2022-12-22 08:29] VITALS: RESP 16
[2022-12-22] MEDS: duloxetine 30 mg Capsule PO (08:29)
[2022-12-22] MEDS: oxyCODONE-APAP 5-325 mg Tablet PO ×2 (08:29→22:32)
--- NOTE | 2022-12-22 08:52 | PC.NURSE ---
During morning assessment, patienstated that she is tired of hurtinjg due to arthritis and spina bifeda surgery that was not performed correctly. Patient agitated, crying. Patient stated that she is tired of hurting. When asked about SI, she stated that's kind of why I'm here . Patient given pain medication. Patient tearful still.
[2022-12-22 13:24] VITALS: BP 91/57; PULSE 66; RESP 16; TEMP 36.8; O2SAT 96
--- NOTE | 2022-12-22 17:13 | P.NPUPN_ITS ---
Subjective NPU Subjective: The patient is a 52-year-old female admitted with a history of borderline personality disorder, pain disorder with psychological and physical factors along with depression. Patient had reported frustration that she had to manage pain and stated that she no longer had a place to return to with her despite there being no clear evidence of this being a fact. She had reported being unable to manage her pain and stated that she should have been allowed by her to simply overdose on these medications so that she would not be a burden to anyone else. The patient had spent much of her day in the room laying in bed. She had been encouraged to find alternatives to distract herself from the pain but reported being unable to concentrate. She had reported not feeling rested. She had expressed some annoyance at having been given oxycodone to manage pain stating that she hated those kind of medications. Patient had been informed that this medicine was given as needed and she had the ability to refuse to take these medications. Mental Status Exam MSE Comments: Patient is a casually dressed white female who appeared her stated age who appeared in significant pain. She had described her mood as upset. Her affect was irritable and mood-congruent. Her thought process appeared linear but laser focused on her pain issues. She had endorsed suicidal ideation with a plan to overdose. She denied any homicidal ideation. She denied any auditory or visual hallucinations and did not appear to be responding to internal stimuli. There was no clear evidence of delusional thinking. There was significant cognitive distortions noted. Her attention span was impaired. Her insight is poor. Her judgment is impaired. Her impulse control is poor. Her recent and remote memory appeared grossly intact. Vitals/I&O/Wt Last Vital Signs Temp 98.3 F 12/22/22 13:24 Pulse 66 12/22/22 13:24 Resp 16 12/22/22 13:24 BP 91/57 12/22/22 13:24 Pulse Ox 96 12/22/22 13:24 O2 Del Method Room Air 12/22/22 13:24 Weight last 48 hrs Weight 104.326 kg Weight 104.326 kg Weight 104.326 kg Data NPU 12/21/22 00:32 12/21/22 00:32 A&P Assessment and plan (1) Major depressive disorder: (2) Pain disorder associated with psychological and physical factors: (3) Suicidal ideation: (4) Borderline personality disorder: Plan Patient is a 52-year-old white female admitted after overdosing on lisinopril with suicide intent with a history of mood swings, depression, and significant chronic pain and fibromyalgia. 1. ?Encourage individual, group and milieu therapy. 2. Recommend sober living treatment at the highest level of care to which the patient is willing to commit. 3. Continue q-15 minute checks for safety.? 4. Continue Cymbalta 30mg in am for depression and chronic pain. Involuntary Hold Information 96 Hour Hold: 96 Hour Involuntary Admission: Yes 96 Hour Hold Ending Date: 12/26/22 96 Hour Hold Ending Time: 00:01 Attestations NPU 2 Medical Necessity Statement*: Inpatient hospitalization is medically necessary and deemed to be the ?clinically appropriate intervention ?at this time.? We will monitor/initiate medications and make changes as indicated.?? Her likely length of stay 3-5 days. Coding Level of Care Code Acute Code for [facility] Fwd Diagnoses Major depressive disorder F32.9 Pain disorder associated with psychological and physical factors F45.42 Suicidal ideation R45.851 Borderline personality disorder F60.3
[2022-12-22 20:35] VITALS: BP 118/75; PULSE 85; RESP 16; TEMP 36.9; O2SAT 97
[2022-12-22 22:32] VITALS: RESP 20
[2022-12-23 06:00] VITALS: BP 100/60; PULSE 70; RESP 16; TEMP 37.1; O2SAT 98
[2022-12-23] MEDS: duloxetine 30 mg Capsule PO (08:22)
--- NOTE | 2022-12-23 09:46 | PC.NURSE ---
Patient reporting back and hip pain 11/30. Patient doesn't like the pain medication because she doesn't like how it makes her feel. When asked about anxiety and depression, patient stated I'm just done. I'm tired of asking for help and not getting any. This nurse asked patient if she felt suicidal. Patient stated, It don't matter. I'll fail if I try, I always do .
[2022-12-23] MEDS: cyclobenzaprine 10 mg Tablet 5 MG PO ×2 (12:39→18:42)
[2022-12-23 14:00] VITALS: BP 101/66; PULSE 77; RESP 16; TEMP 37; O2SAT 96
--- NOTE | 2022-12-23 16:26 | P.NPUPN_ITS ---
Subjective NPU Subjective: The patient is a 52-year-old female admitted with a history of borderline personality disorder, pain disorder with psychological and physical factors along with depression. She complained of having muscle spasms and requested a muscle relaxant. She had continued to lament about having her pain needs not met despite being given opportunity to take myriad of different medications to target her pain. She had appeared minimally engaged in therapy. She had reported difficulties with taking her mind off of her pain issues. She had reported being frustrated but denied having any suicidal thoughts today. She had endorsed some feelings of hopelessness. She had also endorsed chronic fe elings of loneliness. Patient had reported guilt for having to put her family through her issues. The patient had continued to be overwhelmed by her pain issues and stated that she feels that she needs surgery on her hip. She had reported having difficulties with falling asleep. Mental Status Exam MSE Comments: Patient is a casually dressed white female who appeared her stated age who appeared in significant pain. She had described her mood as upset. Her affect was irritable and mood-congruent. Her thought process appeared to be focused on pain with perseveration appreciated. She had endorsed vague passive suicidal ideation with no plan illicited. She denied any homicidal ideation. She denied any auditory or visual hallucinations and did not appear to be responding to internal stimuli. There was no clear evidence of delusional thinking. There was significant cognitive distortions noted. Her attention span was impaired. Her insight is poor. Her judgment is impaired. Her impulse control is poor. Her recent and remote memory appeared grossly intact. Vitals/I&O/Wt Last Vital Signs Temp 98.6 F 12/23/22 14:00 Pulse 77 12/23/22 14:00 Resp 16 12/23/22 14:00 BP 101/66 12/23/22 14:00 Pulse Ox 96 12/23/22 14:00 O2 Del Method Room Air 12/23/22 06:00 Data NPU 12/21/22 00:32 12/21/22 00:32 A&P Assessment and plan (1) Major depressive disorder: (2) Pain disorder associated with psychological and physical factors: (3) Suicidal ideation: (4) Borderline personality disorder: Plan Patient is a 52-year-old white female admitted after overdosing on lisinopril with suicide intent with a history of mood swings, depression, and significant chronic pain and fibromyalgia. 1. ?Encourage individual, group and milieu therapy. 2. Recommend sober living treatment at the highest level of care to which the patient is willing to commit. 3. Continue q-15 minute checks for safety.? 4. Increase Cymbalta to 60mg in am for depression and chronic pain. Involuntary Hold Information 96 Hour Hold: 96 Hour Involuntary Admission: Yes 96 Hour Hold Ending Date: 12/26/22 96 Hour Hold Ending Time: 00:01 Attestations NPU Medical Necessity Statement*: Inpatient hospitalization is medically necessary and deemed to be the ?clinically appropriate intervention ?at this time.? We will monitor/initiate medications and make changes as indicated.?? Her likely length of stay 1-2 days. Coding Level of Care Code Acute Code for g Fwd Diagnoses Major depressive disorder F32.9 Pain disorder associated with psychological and physical factors F45.42 Suicidal ideation R45.851 Borderline personality disorder F60.3
[2022-12-23 19:48] VITALS: BP 117/74; PULSE 87; RESP 17; TEMP 37.1; O2SAT 97
[2022-12-24 06:00] VITALS: BP 105/68; PULSE 71; RESP 18; TEMP 36.8; O2SAT 98
[2022-12-24] MEDS: duloxetine 30 mg Capsule 60 MG PO (08:38)
[2022-12-24] MEDS: cyclobenzaprine 10 mg Tablet 5 MG PO ×2 (10:45→15:07)
[2022-12-24 14:00] VITALS: BP 111/74; PULSE 71; RESP 16; TEMP 36.6; O2SAT 97
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
[2022-12-24 14:36] VITALS: BP 111/74; PULSE 71; RESP 16; TEMP 36.6; O2SAT 97
== END 2022-12-24 15:08 | disposition home or self-care (01) | DRG 918 ==
LOC: ER 12-21 02:14 → NP 12-21 04:33
PROVIDERS: Admitting Provider Psychiatry & Neurology Psychiatry; Emergency Provider Emergency Medicine; PCP Family Medicine; Visit Provider Psychiatry & Neurology Psychiatry
DX: T46.4X2A Poisoning by angiotensin-converting-enzyme inhibitors, intentional self-harm, initial encounter (principal); F43.10 Post-traumatic stress disorder, unspecified; F32.9 Major depressive disorder, single episode, unspecified; F60.3 Borderline personality disorder; G89.29 Other chronic pain; M79.7 Fibromyalgia; M16.12 Unilateral primary osteoarthritis, left hip; Z62.810 Personal history of physical and sexual abuse in childhood; F45.42 Pain disorder with related psychological factors
CPT/HCPCS: 36415; 80053; 80306; 80307; 81001; 81025; 84443; 85025; 93005; 96372; 97165; 99285; J2360; Q0163

== ENCOUNTER → 2023-01-09 09:38 | Outpatient (BNVA) | payer BC, SELFPAY | PROVIDERS: PCP Family Medicine; Visit Provider Student in an Organized Health Care Education/Training Program | DX: M16.12 Unilateral primary osteoarthritis, left hip (principal) | CPT/HCPCS: 77002 ==

== ENCOUNTER 2023-01-15 08:07 | Outpatient (CLI) | payer BC, SELFPAY ==
--- NOTE | 2023-01-15 | MR_ITS ---
WS: [id number] MRI LUMBAR SPINE NONCONTRAST TECHNIQUE: Sagittal T1, T2 and STIR imaging. Axial T1 and T2 imaging. CLINICAL INFORMATION: PAIN COMPARISON: 2018 FINDINGS: Mild lumbar curve. No acute compression. Slight retrolisthesis L3 on L4. Progressed moderate central canal stenosis L3-4. L1-L2: Mild annular bulging. Small RIGHT paracentral protrusion with narrowing of the RIGHT subarticu lar recess. This is progressed compared to previous. Foramen are patent. L2-L3: Mild annular bulging. Spinal canal and foramen are patent. Mild facet arthropathy. L3-L4: Slight retrolisthesis. Moderate central canal stenosis with impingement traversing LEFT greate r than RIGHT L4 nerve roots. Moderate facet arthropathy. LEFT foraminal protrusion with mild LEFT for aminal narrowing. RIGHT foramen is patent. Moderate facet arthropathy. L4-L5: Mild annular bulging. Impingement subarticular recess bilaterally and traversing L5 nerve root s. Moderate facet arthropathy. Foramen are patent. L5-S1: Mild annular bulging with slight effacement of the ventral thecal sac. RIGHT eccentric disc os teophyte complex with mild RIGHT foraminal narrowing. LEFT foramen is patent. Mild facet arthropathy. Visualized pelvic bony structures: Normal. Paravertebral soft tissues: Normal. Hepatomegaly. IMPRESSION: 1. Mild lumbar curve. No acute compression. 2. New progressed moderate central canal stenosis L3-L4 with slight retrolisthesis. Impingement desiree ersing LEFT greater than RIGHT L4 nerve roots. 3. LEFT foraminal protrusion with mild LEFT L3-4 foraminal narrowing. 4. RIGHT eccentric disc osteophyte complex L5-S1 contacts the exiting RIGHT L5 nerve root laterally. 5. Mild annular bulge L4-5 with slight impingement on traversing L5 nerve roots bilaterally. This is progressed compared to previous. 6. Shallow RIGHT paracentral protrusion L1-2 with narrowing of the RIGHT subarticular recess. 7. Moderate facet arthropathy L3-L4 and L4-L5.
== END 2023-01-15 08:08 | disposition home or self-care (01) ==
LOC: RAD 08:07
PROVIDERS: PCP Family Medicine; Visit Provider Nurse Practitioner
DX: M48.061 Spinal stenosis, lumbar region without neurogenic claudication (principal); M51.26 Other intervertebral disc displacement, lumbar region; M25.78 Osteophyte, vertebrae
CPT/HCPCS: 72148

== ENCOUNTER 2023-08-19 17:25 | Emergency (ER) | payer BC, SELFPAY ==
[2023-08-19 17:26] VITALS: BP 159/91; PULSE 79; RESP 16; TEMP 36.8; O2SAT 98
--- NOTE | 2023-08-19 18:09 | CTR_ITS ---
PROCEDURE INFORMATION: Exam: CT Abdomen And Pelvis With Contrast Exam date and time: 08/19/2023 6:49 PM Age: 53 years old Clinical indication: Abdominal pain; Localized; Right lower quadrant (rlq); Prior surgery; Surgery date: 6+ months; Surgery type: Gb, llithotripsy, hyst, cyst on kidney; Additional info: Rlq pain TECHNIQUE: Imaging protocol: Computed tomography of the abdomen and pelvis with contrast. Radiation optimization: All CT scans at this facility use at least one of these dose optimization techniques: automated exposure control; mA and/or kV adjustment per patient size (includes targeted exams where dose is matched to clinical indication); or iterative reconstruction. Contrast material: OMNI 350; Contrast volume: 100 ml; Contrast route: INTRAVENOUS (IV); COMPARISON: CT abdomen pelvis w con* [id number] 07/17/2022 2:23 PM RADIATION DOSE METRICS: Total DLP (mGy-cm): 1030 FINDINGS: Lungs: Subsegmental bibasilar atelectasis. The visualized lung bases are otherwise grossly clear. Diaphragm: No evidence of diaphragmatic defect. Liver: Hepatic steatosis. No evidence of focal hepatic lesion. Gallbladder and bile ducts: Status post cholecystectomy. No evidence of intrahepatic or extrahepatic biliary dilatation. Pancreas: Unremarkable. Spleen: Multiple splenic calcifications compatible with sequela of a remote granulomatous process. Otherwise grossly unremarkable. Adrenal glands: Unremarkable. Kidneys and ureters: No renal parenchymal abnormality. No hydronephrosis or ureteral stone. Stomach and bowel: Colonic diverticulosis without evidence of acute diverticulitis. No bowel obstruction or perienteric inflammatory changes. Appendix: Normal appendix. Intraperitoneal space: No evidence of free air or fluid collection. Vasculature: No aneurysmal dilatation or dissection of the abdominal aorta. The celiac trunk, SMA and CLEMENT are grossly patent. No evidence of IVC thrombus. The portal vein, SMV and splenic veins are grossly patent. Lymph nodes: No adenopathy. Urinary bladder: Grossly unremarkable. Reproductive: Prior hysterectomy. Bones/joints: No evidence of acute fracture or aggressive osseous lesion. Soft tissues: No evidence of fluid collection or hematoma in the superficial soft tissues. CT/CT abdomen pelvis w con* [id number] IMPRESSION: 1. No evidence of acute abnormality in the abdomen or pelvis.
--- NOTE | 2023-08-19 18:11 | W.ED.ABDPA2 ---
HPI - Abdominal Pain General: Chief Complaint: Abdominal Pain Stated Complaint: lower right abd pain sent by doc. Time Seen by Provider: 08/19/23 18:04 Source: patient Mode of arrival: ambulatory Limitations: no limitations History of Present Illness: 53-year-old female states for the right lower quadrant pain for last 2 days states its gotten much worse today. States pain sharp in nature she rates it a 7 out of 10 she denies any diarrhea or fevers. Associated Symptoms: Denies chills, diarrhea, dysuria, fever(s), nausea and vomiting Review of Systems Const: Denies: fever(s), chills, body aches or change in appetite ENMT: Denies: throat pain or dental pain Card: Denies: chest pain Resp: Denies: dyspnea GI: Reports: abdominal pain; Denies: nausea, vomiting or diarrhea : Denies: dysuria Musc: Denies: neck pain or back pain Skin/Breast: Denies: rash Neuro: Denies: headache(s) PFS ED PFSH: Medical History No significant past medical history Surgical History H/O: hysterectomy Physical Exam Const: COMMON NORMALS: no acute distress, patient oriented x3 and healthy appearing HENMT: COMMON NORMALS: normocephalic and atraumatic HEAD & SCALP: normocephalic and atraumatic Neck/C-Spine: COMMON NORMALS: full ROM and supple Chest: COMMONS NORMALS: normal inspection of the chest Resp: COMMON NORMALS: normal respiratory effort Cardio: COMMON NORMALS: regular rate, regular rhythm and No murmurs present (Cardio) RATE: regular rate RHYTHM: regular rhythm GI: COMMON NORMALS: Normal to inspection, nondistended, normoactive bowel sounds present, Soft to palpation and no masses PALPATION: Yes Soft to palpation and Yes Tenderness to palpation present (GI) Details: RLQ Extremity: COMMON NORMALS: normal to inspection and full ROM Neuro: COMMON NORMALS: patient oriented x3, moves all extremities and no focal motor deficits Psych: COMMON NORMALS: mental status grossly normal, Normal thought process present and cooperative THOUGHT PROCESS: Normal thought process present Skin: COMMON NORMALS: no rashes or lesions noted and no wounds GENERAL SKIN EXAM: no rashes or lesions noted Course Vital Signs: Vital signs: Vital Signs Temperature 98.3 F 08/19/23 17:26 Pulse Rate 62 08/19/23 20:23 Respiratory Rate 18 08/19/23 18:42 Blood Pressure 159/91 08/19/23 17:26 Pulse Oximetry 98 08/19/23 20:23 Oxygen Delivery Me thod Room Air 08/19/23 17:26 MDM - Abdominal Pain Medical Decision Making Patient presents here with abdominal pain blood work CT and urine here are all normal her pain has improved here we will prescribe her Reglan for home she is follow-up with PCP and return if worsening she understands agrees to plan Medical Records I reviewed the patient's medical records. Lab Data I reviewed the patient's lab results. 08/19/23 18:27 08/19/23 18:27 Labs/Radiology: Radiology Impressions Abdomen/Pelvis CT 08/19/23 18:09 IMPRESSION: 1. No evidence of acute abnormality in the abdomen or pelvis. Laboratory Results WBC 8.82 10^3/uL (3.29-11.43) 08/19/23 18:27 RBC 5.10 10^6/uL (3.85-5.65) 08/19/23 18:27 Hgb 14.40 g/dL (11.27-16.99) 08/19/23 18:27 Hct 43.6 % (36-47) 08/19/23 18:27 MCV 85.5 fl (85-98) 08/19/23 18:27 MCH 28.2 pg (27-33) 08/19/23 18: MCHC 33.0 g/dL (30-55) 08/19/23 18:27 RDW 13.4 % (12.1-15.1) 08/19/23 18:27 Plt Count 259 10^3/cmm (157-399) 08/19/23 18:27 MPV 10.5 fL (7.4-10.4) H 08/19/23 18:27 Neut % (Auto) 51.3 % 08/19/23 18:27 Lymph % (Auto) 38.3 % 08/19/23 18:27 Archer % (Auto) 8.4 % 08/19/23 18:27 Eos % (Auto) 1.0 % 08/19/23 18: Baso % (Auto) 0.7 % 08/19/23 18: Neut # (Auto) 4.52 10^3/uL (1.8-7.7) 08/19/23 18: Lymph # (Auto) 3.4 10^3/uL (0.8-4.8) 08/19/23 18: Archer # (Auto) 0.7 10^3/uL (0.2-0.9) 08/19/23 18: Eos # (Auto) 0.1 10^3/uL (0.0-0.8) 08/19/23 18: Baso # (Auto) 0.1 10^3/uL (0.0-0.1) 08/19/23 18: Nucleated RBC % (auto) 0 % 08/19/23 18: Nucleated RBCs # 0.0 /100WBC 08/19/23 18: Sodium 141 mmol/L (136-145) 08/19/23 18: Potassium 4.4 mmol/L (3.5-5.1) 08/19/23 18: Chloride 107 mmol/L (98-107) 08/19/23 18: Carbon Dioxide 24 mmol/L (22-29) 08/19/23 18: Anion Gap 14.4 (5-19) 08/19/23 18: BUN 18 mg/dL (6-20) 08/19/23 18: Creatinine 0.8 mg/dL (0.5-0.9) 08/19/23 18: GFR Calculation 75.3 mL/min (90-130) L 08/19/23 18: Glucose 90 mg/dL (65-115) 08/19/23 18: Calculated Osmolality 293 mOsm/kg (285-295) 08/19/23 18: Calcium 8.6 mg/dL (8.5-10.5) 08/19/23 18: Total Bilirubin 0.3 mg/dL (0.15-1.2) 08/19/23 18: AST 21 U/L (0-32) 08/19/23 18: ALT 25 U/L (0-33) 08/19/23 18: Alkaline Phosphatase 92 U/L (35-105) 08/19/23 18:27 Total Protein 7.3 g/dL (6.6-8.7) 08/19/23 18: Albumin 4.1 g/dL (3.5-5.2) 08/19/23 18:27 Globulin 3.2 g/dL (1.3-4.6) 08/19/23 18:27 Lipase 24 U/L (13-60) 08/19/23 18:27 Urine Color Yellow (Yellow) 08/19/23 19:32 Urine Appearance Clear (CLEAR) 08/19/23 19:32 Urine pH 5 (5-7) 08/19/23 19:32 Ur Specific Adrian 1.015 (1.005-1.030) 08/19/23 19:32 Urine Protein Neg (Negative) 08/19/23 19:32 Urine Glucose (UA) Norm (Normal) 08/19/23 19:32 Urine Ketones Negative (Negative) 08/19/23 19:32 Urine Blood Neg (Negative) 08/19/23 19:32 Urine Nitrate Negative (Negative) 08/19/23 19:32 Urine Bilirubin Neg (Negative) 08/19/23 19:32 Urine Urobilinogen Norm mg/dL (Negative) 08/19/23 19:32 Ur Leukocyte Esterase Negative (Negative) 08/19/23 19:32 All radiology interpretation(s) finalized by discharge Discharge Plan Discharge Patient Disposition: Home Clinical Impression: Abdominal pain Condition: Stable Prescriptions: New Reglan 10 mg tablet 10 mg PO Q6H PRN (Reason: nausea and vomiting) Qty: 20 0RF No Action (DME) Ortho CAM Boot See Rx Instructions .Route .MEDSUPPLY Qty: 1 0RF Rx Instructions: As directed cyclobenzaprine 10 mg Tablet 5 mg PO TID 30 Days Qty: 45 1RF duloxetine 60 mg capsule,delayed release(DR/EC) 60 mg PO DAILY 30 Days Qty: 30 1RF Discharge Orders: Discharge ED (Routine); Ordered 08/19/23 Ordered By: Yocasta Zhao Referrals: Bj Moreno MD [Primary Care Provider] - Discharge Diet: Advance as tolerated Discharge Activity: Resume usual activity Patient Instructions: Abdominal Pain (ED) Coding Level of Care Code ED Plasma Processing Technician for Chg Hanna
[2023-08-19 18:42] VITALS: RESP 18; O2SAT 97
[2023-08-19] MEDS: HYDROmorphone 1 mg/mL INJ 1 mL IVP (18:42)
[2023-08-19] MEDS: ondansetron 2 mg/ML SDV 2 mL 4 MG IVP (18:42)
[2023-08-19] MEDS: iohexol 350 mg/mL 500 mL Btl (per mL) IV (18:52)
[2023-08-19 19:01] LABS: Basophils # 0.1 10^3/uL (0.0-0.1); Basophils % 0.7 %; Eosinophils # 0.1 10^3/uL (0.0-0.8); Hematocrit 43.6 % (36-47); Lymphocytes # 3.4 10^3/uL (0.8-4.8); Lymphocytes % 38.3 %; Mean Corpuscular Hemoglobin 28.2 pg (27-33); Mean Corpuscular Volume 85.5 fl (85-98); Mean Platelet Volume 10.5 fL (7.4-10.4); Monocytes # 0.7 10^3/uL (0.2-0.9); Monocytes % 8.4 %; Neutrophils # 4.52 10^3/uL (1.8-7.7); Neutrophils % 51.3 %; Nucleated Red Blood Cells % 0 %; Platelet Count 259 10^3/cmm (157-399); Red Cell Distribution Width 13.4 % (12.1-15.1); White Blood Count 8.82 10^3/uL (3.29-11.43)
[2023-08-19 19:14] LABS: Alanine Aminotransferase 25 U/L (0-33); Albumin Level 4.1 g/dL (3.5-5.2); Alkaline Phosphatase 92 U/L (35-105); Blood Urea Nitrogen 18 mg/dL (6-20); Calcium 8.6 mg/dL (8.5-10.5); Carbon Dioxide 24 mmol/L (22-29); Chloride 107 mmol/L (98-107); Creatinine Clr Calc Pharmacy 92.2855; Globulin 3.2 g/dL (1.3-4.6); Glomerular Filtration Rate 75.3 mL/min (90-130); Glucose 90 mg/dL (65-115); Lipase 24 U/L (13-60); Osmolality Calculated 293 mOsm/kg (285-295); Sodium 141 mmol/L (136-145); Total Bilirubin 0.3 mg/dL (0.15-1.2); Total Protein 7.3 g/dL (6.6-8.7)
[2023-08-19 19:32] LABS: Anion Gap 14.4 (5-19); Aspartate Amino Transferase 21 U/L (0-32); Potassium 4.4 mmol/L (3.5-5.1)
[2023-08-19 19:38] LABS: Add Urine Microscopic? NO; Charge for UA Resulting for Rev
[2023-08-19 19:39] LABS: Bilirubin Urine Neg (Negative); Blood Urine Neg (Negative); Glucose Urine UA Norm (Normal); Ketones Urine Negative (Negative); Leukocyte Esterase Urine Negative (Negative); Nitrate Urine Negative (Negative); Protein Urine Neg (Negative); Specific Gravity, Urine 1.015 (1.005-1.030); Urine Appearance Clear (CLEAR); Urine Color Yellow (Yellow); Urobilinogen Urine Norm (Negative); pH Urine 5 (5-7)
[2023-08-19 20:23] VITALS: PULSE 62; O2SAT 98
== END 2023-08-19 20:30 | disposition home or self-care (01) ==
PROVIDERS: Emergency Provider Emergency Medicine; PCP Family Medicine
DX: R10.31 Right lower quadrant pain (principal)
CPT/HCPCS: 74177; 80053; 81003; 83690; 85025; 96374; 96375; 99285; J1170; J2405; Q9967